=== PATIENT | female | born 1950 | race Caucasian/White ===

== ENCOUNTER 2018-10-02 20:12 | Inpatient (IN) ==
--- NOTE | 2018-10-02 20:25 | Emergency Department Note ---
Disposition Clinical Impression: Acute exacerbation of chronic obstructive airways disease, Community acquired pneumonia, Diabetes mellitus, Dehydration Disposition: Admitted As Inpatient Condition: Good Forms: ED Satisfaction Letter Time of Disposition: 22:49 SOB HPI - General Chief Complaint: ED Shortness of Breath/Dyspnea Stated Complaint: shortness of breath fever and vomiting Time Seen by Provider: 10/02/18 20:13 Source: patient, family Mode of arrival: ambulatory Limitations: no limitations Nursing Notes Reviewed: Yes Vital Signs Reviewed: Yes - History of Present Illness Pt Subjective Complaint: shortness of breath Onset (ago): week(s) (1) Context: recent illness Severity: moderate Consistency/Duration: gradually worsening Improves with: nothing Worsens with: nothing Known history of: COPD, congestive heart failure, diabetes Associated symptoms: Reports: pain with inspiration, fever, cough, wheezing, sputum production, nausea/vomiting, abdominal pain. Denies: chest pain, orthopnea, lower extremity pain, polyuria, polydipsia, parasthesias, palpitations, hemoptysis, diaphoresis, syncope, rash, sense of impending doom Treatment prior to arrival: oxygen Cough present: No Sputum production: No - Related Data Home Medications Medication Instructions Recorded Confirmed Albuterol Sulfate [Proair 2 puff IH Q4H PRN 05/01/15 10/02/18 Respiclick] Aspirin Enteric Coated [Aspirin EC] 81 mg PO DAILY 05/01/15 10/02/18 Atenolol [Tenormin] 100 mg PO DAILY 05/01/15 10/02/18 Ergocalciferol (VITAMIN D2) 50,000 unit PO QWEEK 05/01/15 10/02/18 [Vitamin D2 (50,000 UNIT)] Lisinopril [Zestril] 10 mg PO DAILY 05/01/15 10/02/18 Metformin HCl [Glucophage] 1,000 mg PO BID 05/01/15 10/02/18 Niacin [Niaspan] 500 mg PO DAILY 05/01/15 10/02/18 Omeprazole [PriLOSEC] 20 mg PO DAILY 05/01/15 10/02/18 Amitriptyline HCl 200 mg PO HS 06/20/17 10/02/18 Magnesium Oxide [Mag-Ox] 400 mg PO BID 06/20/17 10/02/18 Potassium Chloride 20 meq PO DAILY 06/20/17 10/02/18 Umeclidinium [place] [Incruse 1 puff IH DAILY 06/20/17 10/02/18 Ellipta] Zolpidem [Ambien] 10 mg PO HS 06/20/17 10/02/18 rOPINIRole [Requip] 3 mg PO HS 06/20/17 10/02/18 DULoxetine [Cymbalta] 30 mg PO DAILY 01/19/18 10/02/18 Fluticasone/Vilanterol [Breo 1 puff IH BID 01/19/18 10/02/18 Ellipta 200-25 Mcg INH] Allergies Allergy/AdvReac Type Severity Reaction Status Date / Time acetaminophen Allergy Cough Verified 10/02/18 20:21 [From Darvocet-N] codeine Allergy Anaphylaxis Verified 10/02/18 20:21 fentanyl Allergy Cough Verified 10/02/18 20:21 hydrocodone [From Vicodin] Allergy Cough Verified 10/02/18 20:21 hydromorphone [Hydromorphone] Allergy Cough Verified 10/02/18 20:21 oxycodone [From Percocet] Allergy Cough Verified 10/02/18 20:21 Penicillins Allergy Anaphylaxis Verified 10/02/18 20:21 propoxyphene Allergy Cough Verified 10/02/18 20:21 [From Darvocet-N] simvastatin [From Zocor] Allergy Cough Verified 10/02/18 20:21 sulfamethoxazole Allergy Cough Verified 10/02/18 20:21 [From Bactrim] tapentadol [From Nucynta] Allergy Cough Verified 05/01/15 15:41 trimethoprim [From Bactrim] Allergy Cough Verified 05/01/15 15:41 tramadol [From Ultram] AdvReac Nausea Verified 03/09/16 07:42 All systems ED: reviewed and negative except as stated. Constitutional: Reports: fever, weakness. Denies: chills Eyes: Denies: eye pain, eye discharge ENT ED: Reports: congestion. Denies: ear pain, throat pain Cardiovascular: Denies: chest pain, palpitations Respiratory: Reports: cough, dyspnea, wheezes, sputum production Gastrointestinal: Reports: nausea, vomiting, diarrhea. Denies: abdominal pain Genitourinary: Denies: urgency, dysuria Musculoskeletal: Denies: back pain Integumentary: Denies: rash, abrasion Neurological: Denies: headache Psychiatric: Denies: anxiety Endocrine: Reports: fatigue Hematological/Lymphatic: Denies: easy bleeding Allergic/Immunologic: Denies: facial swelling Past Medical History - Past Medical History Attestation: Yes The following information was validated with the patient. Source: patient, old records reviewed, nursing notes reviewed Medical history: Reports: CHF, COPD, diabetes, hypertension, myocardial infarction, TIA Surgical history: Reports: orthopedic, other, other Psychiatric history: Reports: anxiety, depression [employer] history: Reports: bilateral tubal ligation - Social History Smoking Status: Never smoker Smokeless Tobacco Status: No Alcohol use: Reports: none Drug use: Reports: none Physical Exam - General Limitations: no limitations General appearance: alert, in no apparent distress, anxious - Head Head exam: atraumatic, normocephalic, normal inspection - Eye Eye exam: Present: normal appearance, PERRL, EOMI - ENT ENT exam: normal exam, normal oropharynx, mucous membranes moist, TM's normal bilaterally, normal external ear exam - Neck Neck exam: Present: normal inspection, full ROM, trachea midline - Chest Chest inspection: Present: normal inspection, symmetric chest wall rise - Respiratory Respiratory exam: Present: normal lung sounds bilaterally, other (Crackles the wheezing and occasional rhonchi that clear with cough no significant muscles respiration a prolonged expiratory phase). Absent: accessory muscle use, prolonged expiratory phase - Cardiovascular Cardiovascular exam: Present: regular rate, normal rhythm, normal heart sounds - Abdominal Exam Abdominal exam: Present: soft, Non-Tender, normal bowel sounds. Absent: mass, pulsatile mass - Expanded Upper Extremity Exam Shoulder exam: Present: normal inspection, full ROM Arm exam: Present: normal inspection, full ROM Elbow exam: Present: normal inspection, full ROM Forearm/Wrist exam: Present: normal inspection, full ROM Hand exam: Present: normal inspection, full ROM Vascular exam: Normal: capillary refill, radial pulse - Expanded Lower Extremity Exam Hip/Pelvis exam: Present: normal inspection, full ROM Upper leg exam: Present: normal inspection, full ROM Knee exam: Present: normal inspection, full ROM Lower leg exam: Present: normal inspection, full ROM Ankle exam: Present: normal inspection, full ROM Foot/toe exam: Present: normal inspection, full ROM Neurovascular/Tendon exam: Present: normal capillary refill, normal fine/light touch. Absent: motor deficit, sensory deficit, tendon deficit Gait: observed and normal - Back Exam Back exam: Present: normal inspection, full ROM. Absent: muscle spasm - Neurological Exam Neurological exam: Present: alert, oriented X3, CN II-XII intact, normal gait - Psychiatric Psychiatric exam: Present: normal affect, normal mood - Skin Skin exam: Present: warm, dry, intact, normal color Course Course Narrative: Patient is seen and evaluated patient has x-rays and CT scan as well as an EKG and laboratory data it does not show that she is in congestive heart failure but the x-ray x-ray shows that she is has a negative chest but then when looking at the CAT scan x-ray shows that she has got an early basilar pneumonia which would account for the consistency of signs and symptoms she is presenting with patient was subsequently admitted we started her on IV antibiotics though by vital sign she did not meet sepsis criteria she did not meet sepsis criteria by evaluation of labs patient was subsequently admitted sepsis was ruled out transferred to [facility] Vital Signs Temperature 100.1 F H 10/02/18 20:13 Pulse Rate 84 10/02/18 20:13 Respiratory Rate 17 10/02/18 20:13 Blood Pressure 161/85 10/02/18 20:13 O2 Sat by Pulse Oximetry 83 10/02/18 20:13 Temperature 100.1 F H 10/02/18 20:13 Pulse Rate 79 10/02/18 22:00 Respiratory Rate 17 10/02/18 22:00 Blood Pressure 118/56 10/02/18 22:00 O2 Sat by Pulse Oximetry 90 10/02/18 22:00 Oxygen Delivery Oxygen Delivery Nasal Cannula Shortness of Breath/Dyspnea - Differential Diagnosis Likely: acute exacerbation of chronic obstructive airways disease, congestive heart failure, pneumonia, asthma with exacerbation - Medical Records Medical records reviewed: Yes I reviewed the patient's medical records. - Lab Data Lab results reviewed: Yes I reviewed the patient's lab results. Result diagrams: 10/02/18 21:21 10/02/18 21:21 Lab Results 10/02/18 10/02/18 10/02/18 Range/Units 21:21 21:21 21:21 WBC 8.6 (4.3-11.1) K/mcL RBC 4.11 (3.82-4.97) M/mcL Hgb 12.8 (11.5-15.4) g/dL Hct 38.4 (35.3-44.9) % MCV 93.4 (83.0-100.0) fL MCH 31.1 (28.0-33.3) pg MCHC 33.3 (31.6-35.5) g/dL RDW 13.6 (11.5-14.5) % Plt Count 235 (140-400) K/mcL MPV 9.4 (9.4-12.4) fL Immature Gran % 0.5 (0-4) % Seg Neutrophils % 88.6 % Lymphocytes % 6.1 % Monocytes % 4.6 % Eosinophils % 0.0 % Basophils % 0.2 % Neutrophils # 7.6 (1.6-8.9) K/mcL Lymphocytes # 0.5 L (0.6-4.6) K/mcL Monocytes # 0.4 (0.0-1.3) K/mcL Eosinophils # 0.0 (0.0-0.6) K/mcL Basophils # 0.0 (0.0-0.2) K/mcL PT (9.4-12.1) Seconds INR APTT 34.6 (26.0-36.0) Seconds Sodium 133 L (136-145) mEq/L Potassium 4.0 (3.5-5.1) mEq/L Chloride 98 (98-107) mEq/L Carbon Dioxide 24 (23-29) mEq/L BUN 16 (8-23) mg/dL Creatinine 1.06 (0.60-1.20) mg/dL Est GFR ( Amer) > 60 (> 60) Est GFR (Non-Af Amer) 52 L (> 60) BUN/Creatinine Ratio 15 (6-26) Glucose 156 H (70-105) mg/dL Calculated Osmolality 280 (280-300) Lactic Acid (0.5-2.2) mmol/L Calcium 9.0 (8.6-10.3) mg/dL Total Bilirubin 0.5 (0.3-1.0) mg/dL AST 15 (13-39) Units/L ALT 9 (7-52) Units/L Alkaline Phosphatase 82 (34-104) Units/L Troponin I (< 0.04) ng/mL B-Natriuretic Peptide (Less than 100) pg/mL Serum Total Protein 6.9 (6.4-8.9) g/dL Albumin 3.7 (3.5-5.7) g/dL Globulin 3.2 (2.4-3.5) g/dL Albumin/Globulin Ratio 1.2 (1.1-2.2) 10/02/18 10/02/18 10/02/18 Range/Units 21:21 21:21 21:21 WBC (4.3-11.1) K/mcL RBC (3.82-4.97) M/mcL Hgb (11.5-15.4) g/dL Hct (35.3-44.9) % MCV (83.0-100.0) fL MCH (28.0-33.3) pg MCHC (31.6-35.5) g/dL RDW (11.5-14.5) % Plt Count (140-400) K/mcL MPV (9.4-12.4) fL Immature Gran % (0-4) % Seg Neutrophils % % Lymphocytes % % Monocytes % % Eosinophils % % Basophils % % Neutrophils # (1.6-8.9) K/mcL Lymphocytes # (0.6-4.6) K/mcL Monocytes # (0.0-1.3) K/mcL Eosinophils # (0.0-0.6) K/mcL Basophils # (0.0-0.2) K/mcL PT 16.1 H (9.4-12.1) Seconds INR 1.4 APTT (26.0-36.0) Seconds Sodium (136-145) mEq/L Potassium (3.5-5.1) mEq/L Chloride (98-107) mEq/L Carbon Dioxide (23-29) mEq/L BUN (8-23) mg/dL Creatinine (0.60-1.20) mg/dL Est GFR ( Amer) (> 60) Est GFR (Non-Af Amer) (> 60) BUN/Creatinine Ratio (6-26) Glucose (70-105) mg/dL Calculated Osmolality (280-300) Lactic Acid 0.9 (0.5-2.2) mmol/L Calcium (8.6-10.3) mg/dL Total Bilirubin (0.3-1.0) mg/dL AST (13-39) Units/L ALT (7-52) Units/L Alkaline Phosphatase (34-104) Units/L Troponin I (< 0.04) ng/mL B-Natriuretic Peptide 89 (Less than 100) pg/mL Serum Total Protein (6.4-8.9) g/dL Albumin (3.5-5.7) g/dL Globulin (2.4-3.5) g/dL Albumin/Globulin Ratio (1.1-2.2) 10/02/18 Range/Units 21:21 WBC (4.3-11.1) K/mcL RBC (3.82-4.97) M/mcL Hgb (11.5-15.4) g/dL Hct (35.3-44.9) % MCV (83.0-100.0) fL MCH (28.0-33.3) pg MCHC (31.6-35.5) g/dL RDW (11.5-14.5) % Plt Count (140-400) K/mcL MPV (9.4-12.4) fL Immature Gran % (0-4) % Seg Neutrophils % % Lymphocytes % % Monocytes % % Eosinophils % % Basophils % % Neutrophils # (1.6-8.9) K/mcL Lymphocytes # (0.6-4.6) K/mcL Monocytes # (0.0-1.3) K/mcL Eosinophils # (0.0-0.6) K/mcL Basophils # (0.0-0.2) K/mcL PT (9.4-12.1) Seconds INR APTT (26.0-36.0) Seconds Sodium (136-145) mEq/L Potassium (3.5-5.1) mEq/L Chloride (98-107) mEq/L Carbon Dioxide (23-29) mEq/L BUN (8-23) mg/dL Creatinine (0.60-1.20) mg/dL Est GFR ( Amer) (> 60) Est GFR (Non-Af Amer) (> 60) BUN/Creatinine Ratio (6-26) Glucose (70-105) mg/dL Calculated Osmolality (280-300) Lactic Acid (0.5-2.2) mmol/L Calcium (8.6-10.3) mg/dL Total Bilirubin (0.3-1.0) mg/dL AST (13-39) Units/L ALT (7-52) Units/L Alkaline Phosphatase (34-104) Units/L Troponin I < 0.03 (< 0.04) ng/mL B-Natriuretic Peptide (Less than 100) pg/mL Serum Total Protein (6.4-8.9) g/dL Albumin (3.5-5.7) g/dL Globulin (2.4-3.5) g/dL Albumin/Globulin Ratio (1.1-2.2) - Radiology Data Radiology results reviewed: Yes I reviewed the patient's radiology results. Impressions Chest X-Ray 10/02/18 20:50 IMPRESSION: No acute findings D/ / Sophia Voss MD / Sophia Voss MD Interpreting Provider: Sophia Voss MD Abdomen/Pelvis CT 10/02/18 20:52 IMPRESSION: 1. Diverticulosis without scan evidence for diverticulitis. 2. Gas in the urinary bladder may indicate cystitis if there has not been recent catheterization. 3. Bibasilar atelectasis or pneumonia. D/ / Ian Kay MD / Ian Kay MD Interpreting Provider: Ian Kay MD - EKG Data EKG attestation: Yes I reviewed and interpreted this EKG. EKG results narrative: Sinus rhythm no ST segment elevation rate 80 VA 15 QRS 108 QT 41 axis LXI Critical Care Time Critical Care Time: No Sepsis Event Note - Evaluation Sepsis Screen: No Definite Risk Current Stage of Suspected Sepsis: ruled out Reason for ruling out sepsis: labs were inconsistent with sepsis and the vitals were consistent with her copd being exhaserbated and fever and tachycardia due to the fever Possible Source of Sepsis: pulmonary - Focused Exam Date of Encounter: 10/02/18 Time of Encounter: 22:54 Vital Signs: Vital Signs Temp Pulse Resp BP Pulse Ox 10/02/18 22:00 79 17 118/56 90 10/02/18 20:13 100.1 F H 84 17 161/85 83 Respiratory Exam: Present: wheezes, rhonchi, crackles Cardiovascular Exam: Present: RRR Capillary Refill: < 2 seconds Peripheral Pulse Strength: 3+ normal Peripheral Pulse Location: Radial Skin Exam: normal turgor - Bedside Monitoring Bedside Ultrasound Performed: No Passive Leg raise/fluid bolus: not performed
[2018-10-02] MEDS ORDERED: Ondansetron 4 MG/2 ML VIAL IVP ONE (20:51)
[2018-10-02] MEDS ORDERED: 0.9 % Sodium Chloride 1,000 ML IVC SCH (21:00)
[2018-10-02 21:33] LABS: Basophils % 0.2 %; Hematocrit 38.4 % (35.3-44.9); Hemoglobin 12.8 g/dL (11.5-15.4); Immature Granulocytes % 0.5 % (0-4); Lymphocytes # 0.5 K/mcL (0.6-4.6); Lymphocytes % 6.1 %; Mean Corpuscular HGB Conc 33.3 g/dL (31.6-35.5); Mean Corpuscular Hemoglobin 31.1 pg (28.0-33.3); Mean Corpuscular Volume 93.4 fL (83.0-100.0); Mean Platelet Volume 9.4 fL (9.4-12.4); Monocytes # 0.4 K/mcL (0.0-1.3); Monocytes % 4.6 %; Neutrophils # 7.6 K/mcL (1.6-8.9); Platelet Count 235 K/mcL (140-400); Red Blood Count 4.11 M/mcL (3.82-4.97); Red Cell Distribution Width 13.6 % (11.5-14.5); Segmented Neutrophils % 88.6 %
[2018-10-02 21:41] LABS: INR 1.4; Prothrombin Time 16.1 Seconds (9.4-12.1)
[2018-10-02 21:54] LABS: Alanine Aminotransferase 9 Units/L (7-52); Albumin 3.7 g/dL (3.5-5.7); Albumin/Globulin Ratio 1.2 (1.1-2.2); Alkaline Phosphatase 82 Units/L (34-104); Aspartate Amino Transferase 15 Units/L (13-39); BUN/Creatinine Ratio 15 (6-26); Bilirubin,Total 0.5 mg/dL (0.3-1.0); Blood Urea Nitrogen 16 mg/dL (8-23); Carbon Dioxide 24 mEq/L (23-29); Chloride 98 mEq/L (98-107); Globulin 3.2 g/dL (2.4-3.5); Glucose 156 mg/dL (70-105); Osmolality,Calculated 280 (280-300); Sodium 133 mEq/L (136-145); Total Protein 6.9 g/dL (6.4-8.9); eGFR For Non-African Americans 52 (> 60)
[2018-10-02] MEDS ORDERED: Levofloxacin 500 MG/100 ML 500 MG/100 ML BAG IVPB ONE (22:33)
[2018-10-02] MEDS ORDERED: Naloxone 0.4 MG/ML INJ IVP PRN ×2 (23:17)
[2018-10-02] MEDS ORDERED: *HR* Dextrose 50 % in Water (Vial) 50 ML VIAL IVP PRN (23:17)
[2018-10-02] MEDS ORDERED: D5% in Water 1,000 ML IVC PRN (23:17)
[2018-10-02] MEDS ORDERED: Dextrose Gel 15 GM/37.5 ML TUBE PO PRN ×2 (23:17)
[2018-10-02] MEDS: 0.9 % Sodium Chloride 1,000 ML IVC SCH (23:47)
[2018-10-03] MEDS: 0.9 % Sodium Chloride 1,000 ML IVC SCH ×2 (05:40→13:44)
[2018-10-03 06:33] LABS: Basophils % 0.3 %; Eosinophils % 0.2 %; Hematocrit 35.8 % (35.3-44.9); Hemoglobin 11.6 g/dL (11.5-15.4); Immature Granulocytes % 0.6 % (0-4); Lymphocytes # 0.6 K/mcL (0.6-4.6); Lymphocytes % 8.8 %; Mean Corpuscular HGB Conc 32.4 g/dL (31.6-35.5); Mean Corpuscular Hemoglobin 31.1 pg (28.0-33.3); Mean Platelet Volume 9.3 fL (9.4-12.4); Monocytes # 0.3 K/mcL (0.0-1.3); Monocytes % 4.2 %; Neutrophils # 5.7 K/mcL (1.6-8.9); Platelet Count 191 K/mcL (140-400); Red Blood Count 3.73 M/mcL (3.82-4.97); Red Cell Distribution Width 13.6 % (11.5-14.5); Segmented Neutrophils % 85.9 %
[2018-10-03 07:07] LABS: BUN/Creatinine Ratio 16 (6-26); Blood Urea Nitrogen 16 mg/dL (8-23); Calcium 8.4 mg/dL (8.6-10.3); Carbon Dioxide 25 mEq/L (23-29); Chloride 101 mEq/L (98-107); Glucose 116 mg/dL (70-105); Osmolality,Calculated 280 (280-300); Potassium 4.3 mEq/L (3.5-5.1); Sodium 134 mEq/L (136-145); eGFR For Non-African Americans 55 (> 60)
[2018-10-03] MEDS: Insulin LISPRO 300 UNITS/3 ML VIAL SQ SCH ×3 (08:34→16:31)
[2018-10-03] MEDS: Breo Ellipta 200-25 Mcg IH SCH ×2 (08:54→20:02)
[2018-10-03] MEDS: Aspirin Enteric Coated 81 MG Tablet PO SCH (08:54)
[2018-10-03] MEDS: Magnesium Oxide 400 MG TABLET PO SCH ×2 (08:54→20:01)
[2018-10-03] MEDS: Niacin (24 HR) 500 MG TAB.ER.24H PO SCH (08:54)
[2018-10-03] MEDS: *HR* Metformin 500 MG TABLET PO SCH ×2 (08:54→16:32)
[2018-10-03] MEDS: Cholecalciferol (D-3) 1,000 UNIT TABLET PO SCH (08:54)
--- NOTE | 2018-10-03 09:50 | Electrocardiograph Report ---
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
--- NOTE | 2018-10-03 17:14 | Internal Med History&Physical ---
Date of Encounter: 10/03/18 Time of Encounter: 15:35 Assessment and Plan (1) Community acquired pneumonia Current visit: Yes Status: Acute Abdominal CT showed by basilar airspace disease. She was started on Levaquin in emergency room (penicillin allergy). Add lactobacillus. Recheck labs in a.m. Qualifiers: Laterality: unspecified laterality Qualified Code(s): J18.9 - Pneumonia, unspecified organism (2) Vomiting Current visit: Yes Status: Acute Improved. Suspect acute gastroenteritis. Continue IV fluids and prn anti- emetics. Advance diet as tolerated. Qualifiers: Vomiting type: unspecified Vomiting Intractability: non-intractable Nausea presence: with nausea Qualified Code(s): R11.2 - Nausea with vomiting, unspecified (3) HYACINTH (acute kidney injury) Current visit: No Status: Acute Creatinine was 1.06 in emergency room compared to 0.88 on 01/19/2018. Continue IV fluids and recheck labs in a.m. (4) HTN (hypertension) Current visit: No Status: Chronic Continue atenolol Qualifiers: Hypertension type: essential hypertension Qualified Code(s): I10 - Essential (primary) hypertension (5) Diabetes mellitus Current visit: Yes Status: Acute Continue Glucophage. Hemoglobin A1c was 6.1% on 04/07/2018. Qualifiers: Diabetes mellitus type: type 2 Diabetes mellitus intermodal customer service insulin use: without intermodal customer service use Diabetes mellitus complication status: without complication Qualified Code(s): E11.9 - Type 2 diabetes mellitus without complications (6) COPD (chronic obstructive pulmonary disease) Current visit: Yes Status: Chronic Continue Breo, Incruse, and prn albuterol. Qualifiers: COPD type: unspecified COPD Qualified Code(s): J44.9 - Chronic obstructive pulmonary disease, unspecified Internal Medicine - H&P: HPI Chief complaint: Dizziness, confusion, falls Admitted From: Emergency Dept Plans for Post Hospital Care: Home History of present illness: Ms. Graner is a 68 year old female who came to emergency room stating she had one week history of nausea and vomiting with lightheadedness and actually had a fall without injury at home. She reports multiple falls over the past months despite walker-assisted ambulation. She was evaluated in emergency room and was felt to have exacerbation of COPD and nicotine acquired pneumonia. She was admitted to [facility] floor for ongoing care needs. She states her last episode of vomiting was over 12 hours ago. She denies abdom inal pain. She denies disorders of her liver gallbladder or exocrine pancreas. Her respiratory history significant for having smoked from age [age] up to 3 packs per day. She reports PFTs were done approximately 2012 and showed COPD. She has had negative workup for JAZZ. She does not use home oxygen. Past Med Surg Social Fam HX - Past Medical History Medical history: CHF, COPD, diabetes, hypertension, myocardial infarction, TIA Additional medical history: ddd Psychiatric history: anxiety, depression - Past Surgical History Surgical History: orthopedic, other, other Additional surgical history: stimulator implanted in spine for pain control, left shoulder repair. lumpectomy. MVP. heart ablasion - Social History Smoking Status: Never smoker Smokeless Tobacco Status: No Alcohol use: none Drug use: none - Family History Mother Living Status: Hx Family Cardiac Disorders: Yes Grandmother Living Status: Hx Family Endocrine Disorder: Yes (diabetes) Internal Medicine - H&P: Meds Albuterol Sulfate [Proair Respiclick] 2 puff IH Q4H PRN 05/01/15 [History] Aspirin Enteric Coated [Aspirin EC] 81 mg PO DAILY 05/01/15 [History] Atenolol [Tenormin] 100 mg PO DAILY 05/01/15 [History] Ergocalciferol (VITAMIN D2) [Vitamin D2 (50,000 UNIT)] 50,000 unit PO QWEEK 05/01/15 [History] Lisinopril [Zestril] 10 mg PO DAILY 05/01/15 [History] Metformin HCl [Glucophage] 1,000 mg PO BID 05/01/15 [History] Niacin [Niaspan] 500 mg PO DAILY 05/01/15 [History] Omeprazole [PriLOSEC] 20 mg PO DAILY 05/01/15 [History] Amitriptyline HCl 200 mg PO HS 06/20/17 [History] Magnesium Oxide [Mag-Ox] 400 mg PO BID 06/20/17 [History] Potassium Chloride 20 meq PO DAILY 06/20/17 [History] Umeclidinium [place] [Incruse Ellipta] 1 puff IH DAILY 06/20/17 [History] Zolpidem [Ambien] 10 mg PO HS 06/20/17 [History] rOPINIRole [Requip] 3 mg PO HS 06/20/17 [History] DULoxetine [Cymbalta] 30 mg PO DAILY 01/19/18 [History] Fluticasone/Vilanterol [Breo Ellipta 200-25 Mcg INH] 1 puff IH BID 01/19/18 [History] Allergy/AdvReac Type Severity Reaction Status Date / Time acetaminophen Allergy Cough Verified 10/02/18 20:21 [From Darvocet-N] codeine Allergy Anaphylaxis Verified 10/02/18 20:21 fentanyl Allergy Cough Verified 10/02/18 20:21 hydrocodone [From Vicodin] Allergy Cough Verified 10/02/18 20:21 hydromorphone [Hydromorphone] Allergy Cough Verified 10/02/18 20:21 oxycodone [From Percocet] Allergy Cough Verified 10/02/18 20:21 Penicillins Allergy Anaphylaxis Verified 10/02/18 20:21 propoxyphene Allergy Cough Verified 10/02/18 20:21 [From Darvocet-N] simvastatin [From Zocor] Allergy Cough Verified 10/02/18 20:21 sulfamethoxazole Allergy Cough Verified 10/02/18 20:21 [From Bactrim] tapentadol [From Nucynta] Allergy Cough Verified 05/01/15 15:41 trimethoprim [From Bactrim] Allergy Cough Verified 05/01/15 15:41 tramadol [From Ultram] AdvReac Nausea Verified 03/09/16 07:42 All Systems PM: A 10-system review of systems was performed and is negative for pertinent findings except as documented above in the HPI. Review of systems: Gen.: She states her weight has been stable for several months Cardiovascular: She has history of hypertension. She reports [place] at age 43. Her most recent heart catheter was a few months ago without intervention. She reports an ablation procedure was done approximately 2010 but is uncertain of the diagnosis. She denies heart failure DVT or pulmonary embolus. Respiratory: As per history of present illness GI: As per history of present illness : She denies hematuria dysuria or kidney stones Neurologic: She reports "mini strokes" in the past without significant neurologic deficit. She has diabetic peripheral neuropathy. She denies s eizures. Endocrine: She was diagnosed with DM 2 approximate 2013. She has hyperlipidemia but denies thyroid disease. Hematology/oncology: She denies blood disorders cancers or anemia Psychiatric: She has anxiety and depression but denies other mental health diagnoses. [place] skeletal: She has DJD and chronic low back pain. She has had left total shoulder replacement. She denies gout or other bone joint or muscle disorders. - Constitutional Vitals: Temp Pulse Resp BP Pulse Ox 99.0 F 71 14 111/49 95 10/03/18 14:51 10/03/18 14:51 10/03/18 14:51 10/03/18 14:51 10/03/18 14:51 Exam: Gen.: She is well-developed well-nourished female resting comfortably in bed who appears in no significant distress at present time HEENT: Head is atraumatic and normocephalic. Eyes: EOMI. There is no scleral icterus. Mouth: Mucosa is moist. Neck: Supple and nontender. There is no thyromegaly or adenopathy noted. Heart: Regular without murmurs gallops or ectopics Lungs: No wheezes or crackles are heard. Abdomen: Soft and nontender. No masses or guarding are noted. Extremities: There is no cyanosis edema or clubbing noted. Dorsalis pedis and posterior tibial pulses are trace to 1+ palpable bilaterally. Her feet are warm to touch Neurologic: Mental status: She is talkative and a good historian. Cranial ner ves: Smile is symmetric. Forehead wrinkles bilaterally. Tongue protrudes midline. EOMI. Motor: She has difficulty pronating her left arm well because of previous shoulder replacement surgery. There is no pronator drift. Cerebellar: Finger to nose is intact bilaterally. Skin: Warm and dry Internal Med - H&P Results - Labs CBC & Chem 7: 10/03/18 06:15 10/03/18 06:15 Labs: Short CBC 10/02/18 10/03/18 Range/Units 21:21 06:15 WBC 8.6 6.6 (4.3-11.1) K/mcL Hgb 12.8 11.6 (11.5-15.4) g/dL Hct 38.4 35.8 (35.3-44.9) % Plt Count 235 191 (140-400) K/mcL Neutrophils # 7.6 5.7 (1.6-8.9) K/mcL BMP 10/02/18 10/03/18 21:21 06:15 Sodium 133 L 134 L Potassium 4.0 4.3 Chloride 98 101 Carbon Dioxide 24 25 BUN 16 16 Creatinine 1.06 1.00 Glucose 156 H 116 H Calcium 9.0 8.4 L Cardiac Enzymes 10/02/18 Range/Units 21:21 Troponin I < 0.03 (< 0.04) ng/mL Liver Function 10/02/18 Range/Units 21:21 Total Bilirubin 0.5 (0.3-1.0) mg/dL AST 15 (13-39) Units/L ALT 9 (7-52) Units/L Alkaline Phosphatase 82 (34-104) Units/L Albumin 3.7 (3.5-5.7) g/dL - Impressions ITS Impressions Chest X-Ray 10/02/18 20:50 IMPRESSION: No acute findings D/ / Sophia Voss MD / Sophia Voss MD Interpreting Provider: Sophia Voss MD Abdomen/Pelvis CT 10/02/18 20:52 IMPRESSION: 1. Diverticulosis without scan evidence for diverticulitis. 2. Gas in the urinary bladder may indicate cystitis if there has not been recent catheterization. 3. Bibasilar atelectasis or pneumonia. D/ / Ian Kay MD / Ian Kay MD Interpreting Provider: Ian Kay MD
[2018-10-03] MEDS: 0.45 % Sodium Chloride w/KCl 20 MEQ/1,000 ML MLS IVC SCH (18:13)
[2018-10-03] MEDS: Levofloxacin 750 MG/150 ML 750 MG/150 ML BAG IVPB SCH (20:01)
[2018-10-03] MEDS: Lactobacillus 1 EACH CAP.SPRINK PO SCH (20:01)
[2018-10-03] MEDS ORDERED: Acetaminophen 325 MG TABLET PO STA (23:39)
[2018-10-03 23:54] LABS: ABG Base Excess -4 mEq/L (-2 to 3); ABG HCO3 21 mEq/L (21-27); ABG Oxygen Saturation 94 % (95-98); ABG PCO2 33 mmHg (35-45); ABG PO2 71 mmHg (85-104); ABG TCO2 22 mEq/L (20-26)
[2018-10-04] MEDS: Acetaminophen 325 MG TABLET PO PRN ×2 (01:52→17:18)
[2018-10-04] MEDS: *HR* Enoxaparin 40 MG/0.4 ML SYRINGE SQ SCH (05:08)
[2018-10-04 06:09] LABS: Basophils % 0.4 %; Hemoglobin 11.3 g/dL (11.5-15.4); Immature Granulocytes % 0.7 % (0-4); Lymphocytes # 0.6 K/mcL (0.6-4.6); Lymphocytes % 7.5 %; Mean Corpuscular HGB Conc 31.4 g/dL (31.6-35.5); Mean Corpuscular Volume 98.9 fL (83.0-100.0); Mean Platelet Volume 9.6 fL (9.4-12.4); Monocytes # 0.3 K/mcL (0.0-1.3); Monocytes % 3.5 %; Neutrophils # 6.6 K/mcL (1.6-8.9); Platelet Count 194 K/mcL (140-400); Red Blood Count 3.64 M/mcL (3.82-4.97); Red Cell Distribution Width 13.9 % (11.5-14.5); Segmented Neutrophils % 87.9 %
[2018-10-04 06:33] LABS: BUN/Creatinine Ratio 15 (6-26); Blood Urea Nitrogen 16 mg/dL (8-23); Calcium 8.3 mg/dL (8.6-10.3); Carbon Dioxide 21 mEq/L (23-29); Chloride 102 mEq/L (98-107); Glucose 119 mg/dL (70-105); Osmolality,Calculated 280 (280-300); Potassium 4.5 mEq/L (3.5-5.1); Sodium 134 mEq/L (136-145); eGFR For Non-African Americans 52 (> 60)
[2018-10-04 08:11] LABS: Platelet Estimate Normal (Normal); Reactive Lymphocytes Present (Not Present)
[2018-10-04] MEDS: *HR* Metformin 500 MG TABLET PO SCH ×2 (09:32→16:34)
[2018-10-04] MEDS: Niacin (24 HR) 500 MG TAB.ER.24H PO SCH (09:32)
[2018-10-04] MEDS: Aspirin Enteric Coated 81 MG Tablet PO SCH (09:32)
[2018-10-04] MEDS: Cholecalciferol (D-3) 1,000 UNIT TABLET PO SCH (09:32)
[2018-10-04] MEDS: Lactobacillus 1 EACH CAP.SPRINK PO SCH ×2 (09:32→21:54)
[2018-10-04] MEDS: Magnesium Oxide 400 MG TABLET PO SCH ×2 (09:33→21:54)
[2018-10-04] MEDS: Breo Ellipta 200-25 Mcg IH SCH ×2 (10:03→21:55)
[2018-10-04] MEDS: Insulin LISPRO 300 UNITS/3 ML VIAL SQ SCH ×3 (10:04→16:33)
[2018-10-04] MEDS: 0.45 % Sodium Chloride w/KCl 20 MEQ/1,000 ML MLS IVC SCH (10:30)
--- NOTE | 2018-10-04 11:00 | Internal Med Progress Note ---
Date of Encounter: 10/04/18 Time of Encounter: 10:50 - Assessment and plan (1) Community acquired pneumonia Current Visit: Yes Status: Acute Assessment and plan: October 04. Continue Levaquin. Pro-calcitonin level will be ordered. Chest CT will be done to further evaluate. Qualifiers: Laterality: unspecified laterality Qualified Code(s): J18.9 - Pneumonia, unspecified organism (2) Vomiting Current Visit: Yes Status: Acute Assessment and plan: October 04. She did not report additional vomiting. Continue diet. Discontinue IV fluids. Qualifiers: Vomiting type: unspecified Vomiting Intractability: non-intractable Nausea presence: with nausea Qualified Code(s): R11.2 - Nausea with vomiting, unspecified (3) HYACINTH (acute kidney injury) Current Visit: No Status: Acute Assessment and plan: October 04. Unimproved. Blood pressure has been borderline low/low. Discontinue lisinopril and monitor renal indices. (4) HTN (hypertension) Current Visit: No Status: Chronic Assessment and plan: October 04. As above Qualifiers: Hypertension type: essential hypertension Qualified Code(s): I10 - Essential (primary) hypertension (5) Diabetes mellitus Current Visit: Yes Status: Acute Assessment and plan: October 04. Hemoglobin A1c was 6.1% on 04/07/2018. Continue Glucophage. Qualifiers: Diabetes mellitus type: type 2 Diabetes mellitus prison insulin use: without prison use Diabetes mellitus complication status: without complication Qualified Code(s): E11.9 - Type 2 diabetes mellitus without complications (6) COPD (chronic obstructive pulmonary disease) Current Visit: Yes Status: Chronic Assessment and plan: October 04. Continue Breo, Incruse, and prn albuterol Qualifiers: COPD type: unspecified COPD Qualified Code(s): J44.9 - Chronic obstructive pulmonary disease, unspecified (7) Frequent falls Current Visit: No Status: Acute Assessment and plan: October 04. She reports multiple falls over the past few months despite walker- assisted ambulation. PT and OT evaluations will be ordered. - Subjective Interval history: October 04. She has no new complaints. - Constitutional Vitals: Temp Pulse Resp BP Pulse Ox 97.8 F 67 30 93/56 93 10/04/18 06:19 10/04/18 06:19 10/04/18 06:10/04/18 06:19 10/04/18 06:19 Exam: She is resting comfortably in bed and appears in no acute distress. Her affect is bright and cheerful. I reviewed her medications and lab results with her. I discussed with her the fever spikes that occurred during the night. Internal Medicine: Result - Labs CBC & Chem 7: 10/04/18 05:46 10/04/18 05:46 Labs: Short CBC 10/04/18 Range/Units 05:46 WBC 7.5 (4.3-11.1) K/mcL Hgb 11.3 L (11.5-15.4) g/dL Hct 36.0 (35.3-44.9) % Plt Count 194 (140-400) K/mcL Neutrophils # 6.6 (1.6-8.9) K/mcL BMP 10/04/18 05:46 Sodium 134 L Potassium 4.5 Chloride 102 Carbon Dioxide 21 L BUN 16 Creatinine 1.05 Glucose 119 H Calcium 8.3 L - ABG Interpretation ABG results: ABG ABG pH 7.40 pH Units (7.32-7.45) 10/03/18 23:51 ABG pCO2 33 mmHg (35-45) L 10/03/18 23:51 ABG pO2 71 mmHg (85-104) L 10/03/18 23:51 ABG O2 Saturation 94 % (95-98) L 10/03/18 23:51 PT/INR, D-dimer PT 16.1 Seconds (9.4-12.1) H 10/02/18 21:21 Consult Discharge Plan - Plan Referrals: Lay Laurent MD [Primary Care Provider] - 1 week
[2018-10-04] MEDS: Levofloxacin 750 MG/150 ML 750 MG/150 ML BAG IVPB SCH (21:54)
[2018-10-05 04:29] LABS: Hematocrit 34.4 % (35.3-44.9); Hemoglobin 11.2 g/dL (11.5-15.4); Immature Granulocytes % 0.8 % (0-4); Lymphocytes % 10.8 %; Mean Corpuscular HGB Conc 32.6 g/dL (31.6-35.5); Mean Corpuscular Hemoglobin 30.8 pg (28.0-33.3); Mean Corpuscular Volume 94.5 fL (83.0-100.0); Mean Platelet Volume 9.5 fL (9.4-12.4); Monocytes % 3.7 %; Platelet Count 231 K/mcL (140-400); Red Blood Count 3.64 M/mcL (3.82-4.97); Red Cell Distribution Width 13.8 % (11.5-14.5); Segmented Neutrophils % 84.5 %
[2018-10-05 04:30] LABS: Basophils % 0.2 %; Lymphocytes # 0.6 K/mcL (0.6-4.6); Monocytes # 0.2 K/mcL (0.0-1.3); Neutrophils # 4.3 K/mcL (1.6-8.9)
[2018-10-05 04:48] LABS: BUN/Creatinine Ratio 15 (6-26); Blood Urea Nitrogen 14 mg/dL (8-23); Calcium 8.8 mg/dL (8.6-10.3); Carbon Dioxide 23 mEq/L (23-29); Chloride 101 mEq/L (98-107); Glucose 99 mg/dL (70-105); Magnesium 1.4 mg/dL (1.6-2.6); Osmolality,Calculated 275 (280-300); Potassium 4.8 mEq/L (3.5-5.1); Sodium 132 mEq/L (136-145); eGFR For Non-African Americans 58 (> 60)
[2018-10-05 05:01] LABS: Platelet Estimate Normal (Normal)
[2018-10-05] MEDS: *HR* Enoxaparin 40 MG/0.4 ML SYRINGE SQ SCH (05:27)
[2018-10-05] MEDS: Acetaminophen 325 MG TABLET PO PRN (08:12)
[2018-10-05] MEDS: *HR* Metformin 500 MG TABLET PO SCH ×2 (08:13→16:30)
[2018-10-05] MEDS: Magnesium Oxide 400 MG TABLET PO SCH (08:13)
[2018-10-05] MEDS: Lactobacillus 1 EACH CAP.SPRINK PO SCH (08:13)
[2018-10-05] MEDS: Niacin (24 HR) 500 MG TAB.ER.24H PO SCH (08:13)
[2018-10-05] MEDS: Aspirin Enteric Coated 81 MG Tablet PO SCH (08:14)
[2018-10-05] MEDS: Cholecalciferol (D-3) 1,000 UNIT TABLET PO SCH (08:14)
[2018-10-05] MEDS: Insulin LISPRO 300 UNITS/3 ML VIAL SQ SCH ×3 (08:14→16:27)
[2018-10-05] MEDS: Breo Ellipta 200-25 Mcg IH SCH (08:14)
--- NOTE | 2018-10-05 12:48 | Internal Med Progress Note ---
Date of Encounter: 10/05/18 Time of Encounter: 12:42 - Assessment and plan (1) Community acquired pneumonia Current Visit: Yes Status: Acute Assessment and plan: October 04. Continue Levaquin. Pro-calcitonin level will be ordered. Chest CT will be done to further evaluate. October 05. Continue Levaquin. Pro-calcitonin level elevated at 0.79. Chest CT showed right upper lobe and bibasilar infiltrates. Qualifiers: Laterality: unspecified laterality Qualified Code(s): J18.9 - Pneumonia, unspecified organism (2) Vomiting Current Visit: Yes Status: Acute Assessment and plan: October 04. She did not report additional vomiting. Continue diet. Discontinue IV fluids. October 05. Resolved. Qualifiers: Vomiting type: unspecified Vomiting Intractability: non-intractable Nausea presence: with nausea Qualified Code(s): R11.2 - Nausea with vomiting, unspecified (3) HYACINTH (acute kidney injury) Current Visit: No Status: Acute Assessment and plan: October 04. Unimproved. Blood pressure has been borderline low/low. Discontinue lisinopril and monitor renal indices. October 05. BUN and creatinine improved at 14 and 0.96 respectively with estimated GFR 58. (4) HTN (hypertension) Current Visit: No Status: Chronic Assessment and plan: October 04. As above October 05. Continue Tenormin. Qualifiers: Hypertension type: essential hypertension Qualified Code(s): I10 - Essential (primary) hypertension (5) Diabetes mellitus Current Visit: Yes Status: Acute Assessment and plan: October 04. Hemoglobin A1c was 6.1% on 04/07/2018. Continue Glucophage. 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 Continue Breo, Incruse, and prn albuterol Qualifiers: COPD type: unspecified COPD Qualified Code(s): J44.9 - Chronic obstructive pulmonary disease, unspecified (7) Frequent falls Current Visit: No Status: Acute Assessment and plan: October 04. She reports multiple falls over the past few months despite walker- assisted ambulation. PT and OT evaluations will be ordered. October 05. She agrees swing bed/SNF would probably be beneficial. Awaiting insurance approval. - Subjective Interval history: October 04. She has no new complaints. October 05. She has no new complaints. She has not vomited in over 24 hours. She still has minimal dyspnea. She denies pain. - Constitutional Vitals: Temp Pulse Resp BP Pulse Ox 99.6 F 85 16 126/71 93 10/05/18 06:39 10/05/18 06:39 10/05/18 06:39 10/05/18 06:39 10/05/18 08:31 Exam: She is resting comfortably in bed and appears in no acute distress. Her affect is bright and cheerful. I reviewed her medications and lab results. Internal Medicine: Result - Labs CBC & Chem 7: 10/05/18 04:12 10/05/18 04:12 Labs: Short CBC 10/05/18 Range/Units 04:12 WBC 5.1 (4.3-11.1) K/mcL Hgb 11.2 L (11.5-15.4) g/dL Hct 34.4 L (35.3-44.9) % Plt Count 231 (140-400) K/mcL Neutrophils # 4.3 (1.6-8.9) K/mcL BMP 10/05/18 04:12 Sodium 132 L Potassium 4.8 Chloride 101 Carbon Dioxide 23 BUN 14 Creatinine 0.96 Glucose 99 Calcium 8.8 - ABG Interpretation ABG results: ABG ABG pH 7.40 pH Units (7.32-7.45) 10/03/18 23:51 ABG pCO2 33 mmHg (35-45) L 10/03/18 23:51 ABG pO2 71 mmHg (85-104) L 10/03/18 23:51 ABG O2 Saturation 94 % (95-98) L 10/03/18 23:51 PT/INR, D-dimer PT 16.1 Seconds (9.4-12.1) H 10/02/18 21:21 - Impressions Impressions Chest CT 10/04/18 11:18 IMPRESSION: Bibasilar consolidative infiltrates compatible with pneumonia as questioned clinically. D/ / 10/04/2018 15:39:06 Adalberto Quijano MD / [email or web address] Interpreting Provider: Adalberto Quijano MD Consult Discharge Plan - Plan Referrals: Lay Laurent MD [Primary Care Provider] - 1 week
[2018-10-05 14:38] VITALS: BP 97/55
--- NOTE | 2018-10-05 15:40 | Discharge Summary ---
Orders not resulted at time of discharge: Pending orders 10/02/18 21:21 Culture,Blood [] Stat Date of Encounter: 10/05/18 Time of Encounter: 12:42 - Discharge Diagnosis (1) Community acquired pneumonia Priority: Primary Status: Acute Qualifiers: Laterality: unspecified laterality Qualified Code(s): J18.9 - Pneumonia, unspecified organism (2) Vomiting Priority: Secondary Status: Resolved Qualifiers: Vomiting type: unspecified Vomiting Intractability: non-intractable Nausea presence: with nausea Qualified Code(s): R11.2 - Nausea with vomiting, unspecified (3) HYACINTH (acute kidney injury) Priority: Secondary Status: Acute (4) HTN (hypertension) Priority: Secondary Status: Chronic Qualifiers: Hypertension type: essential hypertension Qualified Code(s): I10 - Essential (primary) hypertension (5) Diabetes mellitus Priority: Secondary Status: Chronic Qualifiers: Diabetes mellitus type: type 2 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 Garner is a 68 year old female who came to emergency room stating she had one week history of nausea and vomiting with lightheadedness and actually had a fall without injury at home. She reports multiple falls over the past months despite walker-assisted ambulation. She was evaluated in emergency room and was felt to have exacerbation of COPD and nicotine acquired pneumonia. She was admitted to [facility] for ongoing care needs. Initial orders were written by the emergency room physician. I saw her on October 03 and performed the history and physical. She was started on Levaquin with lacto bacillus in emergency room for bibasilar airspace disease seen on abdominal CT scan. Chest CT was done the following day and showed patchy airspace disease also in the posterior segment of the right upper lobe as well as by basilar pneumonia. She spiked fever up to 103 the evening of October 03 but improved over the next 24 hours. It was felt she would need IV antibiotics for several additional days. Pro-calcitonin level returned elevated at 0.79. Physical therapy and occupational therapy evaluations were done for her history of falling. It was felt she would benefit from ongoing therapy in swing bed. Lisinopril was held. BUN and creatinine improved to 14 and 0.96 respectively by October 05. Blood pressure remained stable off lisinopril. - Time Spent with Patient Total time spent providing and/or coordinating discharge services: - Discharge Medications Prescriptions: New Lactobacillus [Culturelle] 1 each PO BID cap.sprink Insulin LISPRO [HumaLOG] 0 units SQ TIDAC vial Levofloxacin 750 MG/150 ML [Levaquin Premix 750mg/150 mL] 750 mg IVPB DAILY 5 Days bag Enoxaparin [Lovenox] 40 mg SQ 0600 syringe Acetaminophen [Tylenol] 650 mg PO Q6HR PRN tablet PRN Reason: Fever Continued Atenolol [Tenormin] 100 mg PO DAILY Aspirin Enteric Coated [Aspirin EC] 81 mg PO DAILY Omeprazole [PriLOSEC] 20 mg PO DAILY Niacin [Niaspan] 500 mg PO DAILY Metformin HCl [Glucophage] 1,000 mg PO BID Ergocalciferol (VITAMIN D2) [Vitamin D2 (50,000 UNIT)] 50,000 unit PO QWEEK Albuterol Sulfate [Proair Respiclick] 2 puff IH Q4H PRN PRN Reason: Shortness Of Breath Magnesium Oxide [Mag-Ox] 400 mg PO BID Umeclidinium [place] [Incruse Ellipta] 1 puff IH DAILY rOPINIRole [Requip] 3 mg PO HS Potassium Chloride 20 meq PO DAILY Amitriptyline HCl 200 mg PO HS Zolpidem [Ambien] 10 mg PO HS DULoxetine [Cymbalta] 30 mg PO DAILY Fluticasone/Vilanterol [Breo Ellipta 200-25 Mcg INH] 1 puff IH BID Discontinued Lisinopril [Zestril] 10 mg PO DAILY Home Medications: Albuterol Sulfate [Proair Respiclick] 2 puff IH Q4H PRN 05/01/15 [History] Aspirin Enteric Coated [Aspirin EC] 81 mg PO DAILY 05/01/15 [History] Atenolol [Tenormin] 100 mg PO DAILY 05/01/15 [History] Ergocalciferol (VITAMIN D2) [Vitamin D2 (50,000 UNIT)] 50,000 unit PO QWEEK 05/01/15 [History] Metformin HCl [Glucophage] 1,000 mg PO BID 05/01/15 [History] Niacin [Niaspan] 500 mg PO DAILY 05/01/15 [History] Omeprazole [PriLOSEC] 20 mg PO DAILY 05/01/15 [History] Amitriptyline HCl 200 mg PO HS 06/20/17 [History] Magnesium Oxide [Mag-Ox] 400 mg PO BID 06/20/17 [History] Potassium Chloride 20 meq PO DAILY 06/20/17 [History] Umeclidinium [place] [Incruse Ellipta] 1 puff IH DAILY 06/20/17 [History] Zolpidem [Ambien] 10 mg PO HS 06/20/17 [History] rOPINIRole [Requip] 3 mg PO HS 06/20/17 [History] DULoxetine [Cymbalta] 30 mg PO DAILY 01/19/18 [History] Fluticasone/Vilanterol [Breo Ellipta 200-25 Mcg INH] 1 puff IH BID 01/19/18 [History] Acetaminophen [Tylenol] 650 mg PO Q6HR PRN tablet 10/05/18 [Rx] Enoxaparin [Lovenox] 40 mg SQ 0600 syringe 10/05/18 [Rx] Insulin LISPRO [HumaLOG] 0 units SQ TIDAC vial 10/05/18 [Rx] Lactobacillus [Culturelle] 1 each PO BID cap.sprink 10/05/18 [Rx] Levofloxacin 750 MG/150 ML [Levaquin Premix 750mg/150 mL] 750 mg IVPB DAILY 5 Days bag 10/05/18 [Rx] Allergies/Adverse Reactions: Allergy/AdvReac Type Severity Reaction Status Date / Time acetaminophen Allergy Cough Verified 10/02/18 20:21 [From Darvocet-N] codeine Allergy Anaphylaxis Verified 10/02/18 20:21 fentanyl Allergy Cough Verified 10/02/18 20:21 hydrocodone [From Vicodin] Allergy Cough Verified 10/02/18 20:21 hydromorphone [Hydromorphone] Allergy Cough Verified 10/02/18 20:21 oxycodone [From Percocet] Allergy Cough Verified 10/02/18 20:21 Penicillins Allergy Anaphylaxis Verified 10/02/18 20:21 propoxyphene Allergy Cough Verified 10/02/18 20:21 [From Darvocet-N] simvastatin [From Zocor] Allergy Cough Verified 10/02/18 20:21 sulfamethoxazole Allergy Cough Verified 10/02/18 20:21 [From Bactrim] tapentadol [From Nucynta] Allergy Cough Verified 05/01/15 15:41 trimethoprim [From Bactrim] Allergy Cough Verified 05/01/15 15:41 tramadol [From Ultram] AdvReac Nausea Verified 03/09/16 07:42 Date of admission: 10/04/18 15:37 Primary care physician: Lay Laurent Consults: 10/02/18 23:17 Consult to Nurse Navigator [CONS] Routine Comment: 10/04/18 11:16 Consult to Occupational Therapy [CONS] Routine Comment: Evaluate, develop and implement POC Reason for Consult: Multiple falls, weakness Does patient have active BEDREST order?: No Is patient medically & hemodynamically stable?: Yes Patient assessed for mobility or mobilized this visit?: Yes Consult to Physical Therapy [CONS] Routine Comment: Evaluate, develop and implement POC Reason for Consult: Multiple falls, weakness Does patient have active BEDREST order?: No Is patient medically & hemodynamically stable?: Yes Patient assessed for mobility or mobilized this visit?: Yes - Constitutional Vitals: Temp Pulse Resp BP Pulse Ox 98.2 F 67 16 97/55 92 10/05/18 14:33 10/05/18 14:33 10/05/18 14:33 10/05/18 14:33 10/05/18 14:33 - Patient Status Disposition: Transfer Hospital Swing Bed Condition: Good - Discharge Instructions - Diet and Activity Activity: as per physical therapy
== END 2018-10-05 17:22 | disposition other institution (70) | DRG 194 ==
LOC: INPPIK 20:12 → EMEROOPIK 20:12 → INPPIK 23:31
PROVIDERS: ADMIT Internal Medicine; ATTEND Internal Medicine

== ENCOUNTER 2018-10-05 16:37 | Inpatient (IN) ==
[2018-10-05] MEDS ORDERED: *HR* Dextrose 50 % in Water (Syg) 50 ML SYRINGE IVP PRN (18:16)
[2018-10-05] MEDS ORDERED: Dextrose Gel 15 GM/37.5 ML TUBE PO PRN ×2 (18:16)
[2018-10-05] MEDS ORDERED: D5% in Water 1,000 ML IVC PRN (18:16)
[2018-10-05] MEDS: *HR* Metformin 500 MG TABLET PO SCH (18:38)
[2018-10-05] MEDS ORDERED: *HR* Dextrose 50 % in Water (Vial) 50 ML VIAL IVP PRN (18:45)
[2018-10-05] MEDS ORDERED: NON-FORMULARY MEDICATION 1 EACH EACH (Levofloxacin 750 Mg/150 Ml 750 MG) IVPB SCH (21:00)
[2018-10-05] MEDS: Acetaminophen 325 MG TABLET PO PRN (21:41)
[2018-10-05] MEDS: Magnesium Oxide 400 MG TABLET PO SCH (21:42)
[2018-10-05] MEDS: Lactobacillus 1 EACH CAP.SPRINK PO SCH (21:42)
[2018-10-05] MEDS: Levofloxacin 750 MG/150 ML 750 MG/150 ML BAG IVPB SCH (21:43)
[2018-10-05] MEDS: Fluticasone/Vilanterol [Breo Ellipta 200-25 Mcg Inh IH SCH (21:43)
[2018-10-06 06:07] LABS: Basophils % 0.5 %; Eosinophils % 0.2 %; Hematocrit 35.2 % (35.3-44.9); Hemoglobin 11.6 g/dL (11.5-15.4); Lymphocytes # 1.2 K/mcL (0.6-4.6); Mean Corpuscular Volume 94.1 fL (83.0-100.0); Mean Platelet Volume 9.6 fL (9.4-12.4); Monocytes # 0.3 K/mcL (0.0-1.3); Monocytes % 7.2 %; Platelet Count 264 K/mcL (140-400); Red Blood Count 3.74 M/mcL (3.82-4.97); Red Cell Distribution Width 13.7 % (11.5-14.5); Segmented Neutrophils % 63.1 %
[2018-10-06 06:09] LABS: Neutrophils # 2.7 K/mcL (1.6-8.9)
[2018-10-06] MEDS: *HR* Enoxaparin 40 MG/0.4 ML SYRINGE SQ SCH (06:27)
[2018-10-06 06:52] LABS: Platelet Estimate Normal (Normal); Reactive Lymphocytes Present (Not Present)
[2018-10-06] MEDS: Insulin LISPRO 300 UNITS/3 ML VIAL SQ SCH ×3 (07:34→15:49)
[2018-10-06] MEDS: *HR* Metformin 500 MG TABLET PO SCH ×2 (07:39→16:32)
[2018-10-06] MEDS: Acetaminophen 325 MG TABLET PO PRN ×2 (09:19→21:38)
[2018-10-06] MEDS: Aspirin Enteric Coated 81 MG Tablet PO SCH (09:19)
[2018-10-06] MEDS: Magnesium Oxide 400 MG TABLET PO SCH ×2 (09:20→21:36)
[2018-10-06] MEDS: Cholecalciferol (D-3) 1,000 UNIT TABLET PO SCH (09:20)
[2018-10-06] MEDS: Lactobacillus 1 EACH CAP.SPRINK PO SCH ×2 (09:20→21:36)
[2018-10-06] MEDS: Niacin (24 HR) 500 MG TAB.ER.24H PO SCH (09:20)
[2018-10-06] MEDS: Fluticasone/Vilanterol [Breo Ellipta 200-25 Mcg Inh IH SCH ×2 (09:21→21:46)
--- NOTE | 2018-10-06 10:22 | Internal Med Progress Note ---
Date of Encounter: 10/06/18 Time of Encounter: 10:14 - Assessment and plan (1) Community acquired pneumonia Current Visit: No Status: Acute Assessment and plan: October 06. Continue IV Levaquin with lactobacillus through 10/09/2018. Qualifiers: Laterality: unspecified laterality Qualified Code(s): J18.9 - Pneumonia, unspecified organism (2) HYACINTH (acute kidney injury) Current Visit: No Status: Acute Assessment and plan: October 06. Monitor renal indices. (3) HTN (hypertension) Current Visit: No Status: Chronic Assessment and plan: October 06. Blood pressure borderline low. Change atenolol to low-dose Toprol-XL. Qualifiers: Hypertension type: essential hypertension Qualified Code(s): I10 - Essential (primary) hypertension (4) Diabetes mellitus Current Visit: No Status: Chronic Assessment and plan: October 06. Hemoglobin A1c was 6.8% on 04/07/2018. Continue Glucophage. Qualifiers: Diabetes mellitus type: type 2 Diabetes mellitus mcfp insulin use: without mcfp use Diabetes mellitus complication status: without complication Qualified Code(s): E11.9 - Type 2 diabetes mellitus without complications (5) Frequent falls Current Visit: No Status: Chronic Assessment and plan: October 06. Continue PT and OT intervention - Subjective Interval history: October 06. She was hospitalized in [facility] acute-care October 02- after presenting with pneumonia. Chest CT showed bibasilar and right upper lobe infiltrates. She responded well to IV Levaquin which will be continued in swing bed. Azotemia improved after lisinopril was held. PT and OT evaluations were done and it was felt she would benefit from ongoing therapy in swing bed. She has no new complaints today. - Constitutional Vitals: Temp Pulse Resp BP Pulse Ox 97.7 F 77 18 108/66 98 10/06/18 06:10 10/06/18 10:11 10/06/18 06:10 10/06/18 10:11 10/06/18 08:17 Exam: She is resting in a chair at bedside and appears in no acute distress. Her affect is bright and cheerful. I reviewed her medications and lab results. Internal Medicine: Result - Labs CBC & Chem 7: 10/06/18 05:35 Labs: Short CBC 10/06/18 Range/Units 05:35 WBC 4.2 L (4.3-11.1) K/mcL Hgb 11.6 (11.5-15.4) g/dL Hct 35.2 L (35.3-44.9) % Plt Count 264 (140-400) K/mcL Neutrophils # 2.7 (1.6-8.9) K/mcL Consult Discharge Plan - Plan Referrals: Lay Laurent MD [Primary Care Provider] - 1 week
[2018-10-06] MEDS ORDERED: Ondansetron ODT 4 MG TAB.RAPDIS SL PRN (16:46)
[2018-10-06] MEDS: Levofloxacin 750 MG/150 ML 750 MG/150 ML BAG IVPB SCH (21:36)
[2018-10-07] MEDS: *HR* Enoxaparin 40 MG/0.4 ML SYRINGE SQ SCH (05:53)
[2018-10-07] MEDS: Insulin LISPRO 300 UNITS/3 ML VIAL SQ SCH ×3 (07:49→16:14)
[2018-10-07] MEDS: *HR* Metformin 500 MG TABLET PO SCH ×2 (07:53→16:18)
[2018-10-07] MEDS: Lactobacillus 1 EACH CAP.SPRINK PO SCH ×2 (08:33→21:22)
[2018-10-07] MEDS: Cholecalciferol (D-3) 1,000 UNIT TABLET PO SCH (08:34)
[2018-10-07] MEDS: Metoprolol XL (24 HR) Succ 25 MG TAB.ER.24H PO SCH (08:34)
[2018-10-07] MEDS: Aspirin Enteric Coated 81 MG Tablet PO SCH (08:34)
[2018-10-07] MEDS: Niacin (24 HR) 500 MG TAB.ER.24H PO SCH (08:34)
[2018-10-07] MEDS: Magnesium Oxide 400 MG TABLET PO SCH ×2 (08:35→21:22)
[2018-10-07] MEDS: Fluticasone/Vilanterol [Breo Ellipta 200-25 Mcg Inh IH SCH ×2 (10:02→21:22)
[2018-10-07] MEDS: Acetaminophen 325 MG TABLET PO PRN (16:18)
[2018-10-07] MEDS: Levofloxacin 750 MG/150 ML 750 MG/150 ML BAG IVPB SCH (21:22)
[2018-10-08] MEDS: *HR* Enoxaparin 40 MG/0.4 ML SYRINGE SQ SCH (06:18)
[2018-10-08] MEDS: Insulin LISPRO 300 UNITS/3 ML VIAL SQ SCH ×3 (07:56→16:50)
[2018-10-08] MEDS: Fluticasone/Vilanterol [Breo Ellipta 200-25 Mcg Inh IH SCH ×2 (08:00→20:38)
[2018-10-08] MEDS: Lactobacillus 1 EACH CAP.SPRINK PO SCH ×2 (08:10→20:37)
[2018-10-08] MEDS: Magnesium Oxide 400 MG TABLET PO SCH ×2 (08:10→20:37)
[2018-10-08] MEDS: Cholecalciferol (D-3) 1,000 UNIT TABLET PO SCH (08:10)
[2018-10-08] MEDS: Niacin (24 HR) 500 MG TAB.ER.24H PO SCH (08:10)
[2018-10-08] MEDS: *HR* Metformin 500 MG TABLET PO SCH ×2 (08:11→16:54)
[2018-10-08] MEDS: Aspirin Enteric Coated 81 MG Tablet PO SCH (08:11)
[2018-10-08] MEDS: Metoprolol XL (24 HR) Succ 25 MG TAB.ER.24H PO SCH (08:13)
[2018-10-08] MEDS: Acetaminophen 325 MG TABLET PO PRN ×2 (08:17→20:36)
[2018-10-08] MEDS: Levofloxacin 750 MG/150 ML 750 MG/150 ML BAG IVPB SCH (20:37)
[2018-10-09] MEDS: *HR* Enoxaparin 40 MG/0.4 ML SYRINGE SQ SCH (06:19)
[2018-10-09 07:14] VITALS: BP 132/72
[2018-10-09] MEDS: Insulin LISPRO 300 UNITS/3 ML VIAL SQ SCH ×2 (08:13→12:32)
[2018-10-09] MEDS: Fluticasone/Vilanterol [Breo Ellipta 200-25 Mcg Inh IH SCH (08:14)
[2018-10-09] MEDS: Lactobacillus 1 EACH CAP.SPRINK PO SCH (08:24)
[2018-10-09] MEDS: Cholecalciferol (D-3) 1,000 UNIT TABLET PO SCH (08:24)
[2018-10-09] MEDS: Magnesium Oxide 400 MG TABLET PO SCH (08:24)
[2018-10-09] MEDS: Metoprolol XL (24 HR) Succ 25 MG TAB.ER.24H PO SCH (08:24)
[2018-10-09] MEDS: *HR* Metformin 500 MG TABLET PO SCH (08:24)
[2018-10-09] MEDS: Aspirin Enteric Coated 81 MG Tablet PO SCH (08:24)
[2018-10-09] MEDS: Niacin (24 HR) 500 MG TAB.ER.24H PO SCH (08:30)
--- NOTE | 2018-10-09 09:35 | Discharge Summary ---
Date of Encounter: 10/09/18 Time of Encounter: 09:27 - Discharge Diagnosis (1) Community acquired pneumonia Priority: Primary Status: Resolved Qualifiers: Laterality: unspecified laterality Qualified Code(s): J18.9 - Pneumonia, unspecified organism (2) HYACINTH (acute kidney injury) Priority: Secondary Status: Acute (3) HTN (hypertension) Priority: Secondary Status: Chronic Qualifiers: Hypertension type: essential hypertension Qualified Code(s): I10 - Essential (primary) hypertension (4) Diabetes mellitus Priority: Secondary Status: Chronic Qualifiers: Diabetes mellitus type: type 2 Diabetes mellitus retirement insulin use: without intermediate manager use Diabetes mellitus complication status: without complication Qualified Code(s): E11.9 - Type 2 diabetes mellitus without complications (5) Frequent falls Priority: Secondary Status: Chronic Hospital course: Ms. Garner is a 68 year old female who was hospitalized in [facility] acute-care October 02- after presenting with pneumonia. Chest CT showed bibasilar and right upper lobe infiltrates. She responded well to IV Levaquin. Azotemia improved after lisinopril was held. PT and OT evaluations were done and it was felt she would benefit from ongoing therapy in swing bed. She continued to progress with therapy intervention. It was felt she would benefit from a wheeled walker at home. Prescription for this was given and a walker was delivered prior to discharge. (Wheels will be delivered/fitted this week). She was changed to Toprol-XL. Atenolol and lisinopril were discontinued. She had good blood pressure control and this will be continued at discharge. Creatinine decreased to 0.96 on October 05. Her PCP can monitor. She continued with IV Levaquin until day of discharge. She remained afebrile. No further antibiotics/probiotic will be prescribed. Room air oximetry will be checked on 6 minute walk prior to discharge. On October 09 she was stable for discharge home. She will follow with her PCP Dr. Laurent within 1 week. - Time Spent with Patient Total time spent providing and/or coordinating discharge services: - Discharge Medications Prescriptions: New Metoprolol XL (24 HR) Succ [Toprol XL] 50 mg PO DAILY #30 tab.er.24h Continued Aspirin Enteric Coated [Aspirin EC] 81 mg PO DAILY Omeprazole [PriLOSEC] 20 mg PO DAILY Niacin [Niaspan] 500 mg PO DAILY Metformin HCl [Glucophage] 1,000 mg PO BID Ergocalciferol (VITAMIN D2) [Vitamin D2 (50,000 UNIT)] 50,000 unit PO QWEEK Albuterol Sulfate [Proair Respiclick] 2 puff IH Q4H PRN PRN Reason: Shortness Of Breath Magnesium Oxide [Mag-Ox] 400 mg PO BID Umeclidinium [place] [Incruse Ellipta] 1 puff IH DAILY rOPINIRole [Requip] 3 mg PO HS Amitriptyline HCl 200 mg PO HS Zolpidem [Ambien] 10 mg PO HS DULoxetine [Cymbalta] 30 mg PO DAILY Fluticasone/Vilanterol [Breo Ellipta 200-25 Mcg INH] 1 puff IH BID Insulin LISPRO [HumaLOG] 0 units SQ TIDAC vial Enoxaparin [Lovenox] 40 mg SQ 0600 syringe Acetaminophen [Tylenol] 650 mg PO Q6HR PRN tablet PRN Reason: Fever Discontinued Atenolol [Tenormin] 100 mg PO DAILY Potassium Chloride 20 meq PO DAILY Lactobacillus [Culturelle] 1 each PO BID cap.sprink Levofloxacin 750 MG/150 ML [Levaquin Premix 750mg/150 mL] 750 mg IVPB DAILY 5 Days bag Home Medications: Albuterol Sulfate [Proair Respiclick] 2 puff IH Q4H PRN 05/01/15 [History] Aspirin Enteric Coated [Aspirin EC] 81 mg PO DAILY 05/01/15 [History] Ergocalciferol (VITAMIN D2) [Vitamin D2 (50,000 UNIT)] 50,000 unit PO QWEEK 05/01/15 [History] Metformin HCl [Glucophage] 1,000 mg PO BID 05/01/15 [History] Niacin [Niaspan] 500 mg PO DAILY 05/01/15 [History] Omeprazole [PriLOSEC] 20 mg PO DAILY 05/01/15 [History] Amitriptyline HCl 200 mg PO HS 06/20/17 [History] Magnesium Oxide [Mag-Ox] 400 mg PO BID 06/20/17 [History] Umeclidinium [place] [Incruse Ellipta] 1 puff IH DAILY 06/20/17 [History] Zolpidem [Ambien] 10 mg PO HS 06/20/17 [History] rOPINIRole [Requip] 3 mg PO HS 06/20/17 [History] DULoxetine [Cymbalta] 30 mg PO DAILY 01/19/18 [History] Fluticasone/Vilanterol [Breo Ellipta 200-25 Mcg INH] 1 puff IH BID 01/19/18 [History] Acetaminophen [Tylenol] 650 mg PO Q6HR PRN tablet 10/05/18 [Rx] Enoxaparin [Lovenox] 40 mg SQ 0600 syringe 10/05/18 [Rx] Insulin LISPRO [HumaLOG] 0 units SQ TIDAC vial 10/05/18 [Rx] Metoprolol XL (24 HR) Succ [Toprol XL] 50 mg PO DAILY #30 tab.er.24h 10/09/18 [Rx] Allergies/Adverse Reactions: Allergy/AdvReac Type Severity Reaction Status Date / Time acetaminophen Allergy Cough Verified 10/02/18 20:21 [From Darvocet-N] codeine Allergy Anaphylaxis Verified 10/02/18 20:21 fentanyl Allergy Cough Verified 10/02/18 20:21 hydrocodone [From Vicodin] Allergy Cough Verified 10/02/18 20:21 hydromorphone [Hydromorphone] Allergy Cough Verified 10/02/18 20:21 oxycodone [From Percocet] Allergy Cough Verified 10/02/18 20:21 Penicillins Allergy Anaphylaxis Verified 10/02/18 20:21 propoxyphene Allergy Cough Verified 10/02/18 20:21 [From Darvocet-N] simvastatin [From Zocor] Allergy Cough Verified 10/02/18 20:21 sulfamethoxazole Allergy Cough Verified 10/02/18 20:21 [From Bactrim] tapentadol [From Nucynta] Allergy Cough Verified 05/01/15 15:41 trimethoprim [From Bactrim] Allergy Cough Verified 05/01/15 15:41 tramadol [From Ultram] AdvReac Nausea Verified 03/09/16 07:42 Date of admission: 10/05/18 17:44 Primary care physician: Lay Laurent Consults: 10/05/18 17:49 Consult to Physical Therapy [CONS] Routine Comment: Evaluate, develop and implement POC Reason for Consult: frequent falls Does patient have active BEDREST order?: No Is patient medically & hemodynamically stable?: Yes Patient assessed for mobility or mobilized this visit?: Yes OT [Consult to Occupational Therapy] [CONS] Routine Comment: Evaluate, develop and implement POC Reason for Consult: frequent falls, weakness Does patient have active BEDREST order?: No Is patient medically & hemodynamically stable?: Yes Patient assessed for mobility or mobilized this visit?: Yes - Constitutional Vitals: Temp Pulse Resp BP Pulse Ox 98.2 F 81 14 132/72 93 10/09/18 07:13 10/09/18 07:13 10/09/18 07:13 10/09/18 07:13 10/09/18 07:13 - Patient Status Disposition: Home Health Service Functional capacity at discharge: uses cane/walker - Discharge Instructions Follow Up With: Lay Laurent MD [Primary Care Provider] - 1 week - Diet and Activity Activity: as per physical therapy Diet: low fat, low cholesterol, low salt diet
--- NOTE | 2018-10-09 09:45 | Physician Discharge Referral ---
Home Health/Hosp Referral Info Transfer to: Home Health Attending Provider: Akash Provider in Charge Post Discharge: PCP Nathalia) - Diagnosis (1) Community acquired pneumonia Priority: Primary Status: Resolved (2) YHACINTH (acute kidney injury) Priority: Secondary Status: Acute (3) HTN (hypertension) Priority: Secondary Status: Chronic (4) Diabetes mellitus Priority: Secondary Status: Chronic (5) Frequent falls Priority: Secondary Status: Chronic - Respiratory Orders Smoking Cessation: Smoking cessation has been advised. For more information, call the [place] Tobacco Quit Line at 9-409-BXQT-NOW. - Diet/Nutrition Diet/Nutrition Orders: Cardiac - Activity Activity Orders: Walker - Services Needed Following services are medically necessary services: Nursing, Home Health Aide, Physical Therapy, Occupational Therapy - Transfer Medications Prescriptions: Metoprolol XL (24 HR) Succ [Toprol XL] 50 mg PO DAILY #30 tab.er.24h Home Medications: Albuterol Sulfate [Proair Respiclick] 2 puff IH Q4H PRN 05/01/15 [History] Aspirin Enteric Coated [Aspirin EC] 81 mg PO DAILY 05/01/15 [History] Ergocalciferol (VITAMIN D2) [Vitamin D2 (50,000 UNIT)] 50,000 unit PO QWEEK 05/01/15 [History] Metformin HCl [Glucophage] 1,000 mg PO BID 05/01/15 [History] Niacin [Niaspan] 500 mg PO DAILY 05/01/15 [History] Omeprazole [PriLOSEC] 20 mg PO DAILY 05/01/15 [History] Amitriptyline HCl 200 mg PO HS 06/20/17 [History] Magnesium Oxide [Mag-Ox] 400 mg PO BID 06/20/17 [History] Umeclidinium [place] [Incruse Ellipta] 1 puff IH DAILY 06/20/17 [History] Zolpidem [Ambien] 10 mg PO HS 06/20/17 [History] rOPINIRole [Requip] 3 mg PO HS 06/20/17 [History] DULoxetine [Cymbalta] 30 mg PO DAILY 01/19/18 [History] Fluticasone/Vilanterol [Breo Ellipta 200-25 Mcg INH] 1 puff IH BID 01/19/18 [History] Acetaminophen [Tylenol] 650 mg PO Q6HR PRN tablet 10/05/18 [Rx] Enoxaparin [Lovenox] 40 mg SQ 0600 syringe 10/05/18 [Rx] Insulin LISPRO [HumaLOG] 0 units SQ TIDAC vial 10/05/18 [Rx] Metoprolol XL (24 HR) Succ [Toprol XL] 50 mg PO DAILY #30 tab.er.24h 10/09/18 [Rx] Allergies/Adverse Reactions: Allergy/AdvReac Type Severity Reaction Status Date / Time acetaminophen Allergy Cough Verified 10/02/18 20:21 [From Darvocet-N] codeine Allergy Anaphylaxis Verified 10/02/18 20:21 fentanyl Allergy Cough Verified 10/02/18 20:21 hydrocodone [From Vicodin] Allergy Cough Verified 10/02/18 20:21 hydromorphone [Hydromorphone] Allergy Cough Verified 10/02/18 20:21 oxycodone [From Percocet] Allergy Cough Verified 10/02/18 20:21 Penicillins Allergy Anaphylaxis Verified 10/02/18 20:21 propoxyphene Allergy Cough Verified 10/02/18 20:21 [From Darvocet-N] simvastatin [From Zocor] Allergy Cough Verified 10/02/18 20:21 sulfamethoxazole Allergy Cough Verified 10/02/18 20:21 [From Bactrim] tapentadol [From Nucynta] Allergy Cough Verified 05/01/15 15:41 trimethoprim [From Bactrim] Allergy Cough Verified 05/01/15 15:41 tramadol [From Ultram] AdvReac Nausea Verified 03/09/16 07:42 Certification: Further, I certify that my clinical findings support that this patient is homebound (i.e. absences from home require considerable and taxing effort and are for medical reasons or confucianist services or infrequently or short duration when for other reasons) because: Homebound Reason: Leaving home requires considerable and taxing effort due to condition (Weakness, dyspnea on exertion, frequent falls.) Attestation: My signature below is to certify that this patient is under my care and that I, or nurse practitioner, or a physician's assistant store director working with me, has a face-to -face encounter with this patient.
== END 2018-10-09 13:45 | disposition home health service (06) | DRG 194 ==
LOC: INPPIK 17:44
PROVIDERS: ADMIT Internal Medicine; ATTEND Internal Medicine